=== PATIENT | female | born 1955 | race Caucasian/White ===

== ENCOUNTER 2021-10-05 13:41 | Outpatient (CLI) | payer OTHER | END 2021-10-05 13:42 | disposition home or self-care (01) | LOC: RAD-FRANK 13:41 | PROVIDERS: ATTEND Nurse Practitioner Family | DX: M25.571 Pain in right ankle and joints of right foot (principal); S82.64XA Nondisplaced fracture of lateral malleolus of right fibula, initial encounter for closed fracture ==